=== PATIENT | female | born 1995 | race Caucasian/White ===

== ENCOUNTER → 2017-05-28 09:28 | Outpatient (CLI) | payer BC | END | disposition home or self-care (01) | LOC: D.CT 09:28 | DX: G44.019 Episodic cluster headache, not intractable (principal) ==

== ENCOUNTER 2018-10-20 20:19 | Emergency (ER) | payer MEDICAID ==
[~2018-10-20] VITALS: Ht 160 cm; Wt 65.8 kg
[2018-10-20 20:33] VITALS: Ht 160 cm; Wt 65.8 kg
[2018-10-20] MEDS ORDERED: SINGULAIR10 MG PO (20:34)
[2018-10-20] MEDS ORDERED: CLARITIN 10 MG10 MG PO (20:34)
[2018-10-20] MEDS ORDERED: KLONOPIN0.5 MG PO (20:35)
[2018-10-20] MEDS ORDERED: MAXALT10 MG PO (20:35)
[2018-10-20] MEDS ORDERED: IMITREX50 MG PO (23:30)
[2018-10-20 23:44] VITALS: BP 114/71
== END 2018-10-20 23:45 | disposition home or self-care (01) ==
LOC: D.ER 20:19
DX: G43.909 Migraine, unspecified, not intractable, without status migrainosus (principal)

== ENCOUNTER 2020-06-04 21:11 | Emergency (ER) | payer SELFPAY ==
[~2020-06-04] VITALS: Ht 160 cm; Wt 77.3 kg
[~2020-06-04 21:11] MED LIST: CLARITIN 10 MG10 MG PO; IMITREX50 MG PO; KLONOPIN0.5 MG PO; MAXALT10 MG PO; SINGULAIR10 MG PO
[2020-06-04 21:18] VITALS: Ht 160 cm; Wt 77.3 kg
[2020-06-04] MEDS ORDERED: TESSALON PERLE100 MG PO (23:13)
[2020-06-04] MEDS ORDERED: PREDNISONE20 MG PO (23:13)
[2020-06-05 00:13] VITALS: BP 107/68
== END 2020-06-05 00:14 | disposition home or self-care (01) ==
LOC: D.ER 21:11
DX: B34.9 Viral infection, unspecified (principal); J45.909 Unspecified asthma, uncomplicated; G43.909 Migraine, unspecified, not intractable, without status migrainosus; R05 Cough